=== PATIENT | female | born 2000 | race American Indian/Alaskan Native ===

== ENCOUNTER 2019-05-18 13:17 | Emergency (ER) | payer SELFPAY ==
--- NOTE | 2019-05-18 13:49 | Emergency Department Report ---
Blank Doc - Documentation Documentation: 19-year-old female that presents with upper lip swelling and itching. Denies any difficulty breathing. Uvula midline. No other swelling or angioedema. This initial assessment/diagnostic orders/clinical plan/treatment(s) is/are subject to change based on patient's health status, clinical progression and re- assessment by fellow clinical providers in the ED. Further treatment and workup at subsequent clinical providers discretion. Patient/guardians urged not to elope from the ED as their condition may be serious if not clinically assessed and managed. Initial orders include: 1- Patient sent to [facility] for further evaluation and treatment 2- treatment needed
[2019-05-18] MEDS ORDERED: FAMOTIDINE 20 MG/2 ML INJ IV ONE (13:50)
[2019-05-18] MEDS ORDERED: diphenhydrAMINE 50 MG/ML VIAL IV ONE (13:50)
[2019-05-18] MEDS ORDERED: SODIUM CHLORIDE 0.9% 1000 ML 1,000 ML IV ONE (13:50)
[2019-05-18] MEDS ORDERED: dexAMETHasone 20 MG/5 ML VIAL IV ONE (13:50)
[2019-05-18 15:40] VITALS: BP 105/56
[2019-05-18] MEDS ORDERED: dexAMETHasone 20 MG/5 ML VIAL IM ONE (15:47)
--- NOTE | 2019-05-18 15:52 | Emergency Department Report ---
ED Allergic Reaction HPI - General Chief complaint: Dental/Oral Stated complaint: FACIAL SWELLING Time Seen by Provider: 05/18/19 13:47 Source: patient Mode of arrival: Ambulatory Limitations: No Limitations - History of Present Illness Initial Comments: 19-year-old female presenting with concerns of allergic reaction. She states that she had a tattoo on her neck last week and then developed hives intermittently over the next few days that responded to Benadryl. She states that this morning she had a swollen upper lip. Denies taking any prescription or [id number] medicines or any other known exposures. Denies any difficulty swallowing or breathing. No alleviating or exacerbating factors. MD Complaint: allergic reaction -: Gradual Symptoms: rash, itching, lip swelling Severity: mild Treatment Prior to Arrival: benadryl Previous Allergy History: none - Related Data Previous Rx's Medication Instructions Recorded Last Taken Type predniSONE [Deltasone] 40 mg PO QDAY #10 tab 05/18/19 Unknown Rx Allergies Allergy/AdvReac Type Severity Reaction Status Date / Time No Known Allergies Allergy Unverified 05/18/19 13:23 ED Review of Systems ROS: Stated complaint: FACIAL SWELLING Other details as noted in HPI Comment: All other systems reviewed and negative ENT: as per HPI ED Past Medical Hx - Past Medical History Previous Medical History?: No - Surgical History Past Surgical History?: No - Social History Smoking Status: Current Some Day Smoker Substance Use Type: None - Medications Home Medications: Home Medications Medication Instructions Recorded Confirmed Last Taken Type predniSONE [Deltasone] 40 mg PO QDAY #10 tab 05/18/19 Unknown Rx ED Physical Exam - General Limitations: No Limitations General appearance: alert, in no apparent distress - Head Head exam: Present: atraumatic, normocephalic - Eye Eye exam: Present: normal appearance - ENT ENT exam: Present: mucous membranes moist, other (Mild swelling to the left side of the upper lip, uvula midline without edema, airway patent, tongue normal) - Neck Neck exam: Present: normal inspection - Respiratory Respiratory exam: Present: normal lung sounds bilaterally. Absent: respiratory distress - Cardiovascular Cardiovascular Exam: Present: regular rate, normal rhythm. Absent: systolic murmur, diastolic murmur, rubs, gallop - GI/Abdominal GI/Abdominal exam: Present: soft, normal bowel sounds - Extremities Exam Extremities exam: Present: normal inspection - Back Exam Back exam: Present: normal inspection - Neurological Exam Neurological exam: Present: alert, oriented X3 - Psychiatric Psychiatric exam: Present: normal affect, normal mood - Skin Skin exam: Present: warm, dry, intact, normal color. Absent: rash ED Course Vital Signs 05/18/19 13:23 Temperature 97.8 F Pulse Rate 98 H Respiratory 18 Rate Blood Pressure 105/56 O2 Sat by Pulse 99 Oximetry ED Medical Decision Making - Medical Decision Making Patient presenting with possible allergic reaction to unknown cause. Does not take any medications [id number] or prescription. On exam. Mild swelling to the left upper lip otherwise unremarkable. She will be given an injection of Decadron and placed on oral steroids for the next few days and will continue Benadryl at home. Follow-up PCP, return precautions given. - Differential Diagnosis Allergic reaction, angioedema Critical care attestation.: If time is entered above; I have spent that time in minutes in the direct care of this critically ill patient, excluding procedure time. ED Disposition Clinical Impression: Allergic reaction Qualifiers: Encounter type: initial encounter Qualified Code(s): T78.40XA - Allergy, unspecified, initial encounter Disposition: TO HOME OR SELFCARE Is pt being admited?: No Condition: Good Instructions: Allergies (ED) Prescriptions: predniSONE [Deltasone] 40 mg PO QDAY #10 tab Referrals: PRIMARY CARE, [Primary Care Provider] - 3-5 Days Time of Disposition: 15:51
== END 2019-05-18 16:09 | disposition home or self-care (01) ==
LOC: ED 13:17
DX: T78.40XA Allergy, unspecified, initial encounter (principal); F17.200 Nicotine dependence, unspecified, uncomplicated; Z79.899 Other long term (current) drug therapy; X58.XXXA Exposure to other specified factors, initial encounter
CPT/HCPCS: 96372; 99282; J1100